=== PATIENT | male | born 1965 | race Two or more races ===

== ENCOUNTER 2018-05-11 11:16 | Emergency (ER) | payer SELFPAY ==
--- NOTE | 2018-05-11 11:47 | EDPHY ---
H & P Stated Complaint: Doesn't feel good since last evening Time Seen by Provider: 05/11/18 11:30 HPI/ROS: Chief Complaint: Weakness, malaise HPI: 52-year-old male with no significant medical history is presenting complaining of worsening general malaise and weakness since yesterday afternoon. It was gradual in onset. Patient states he is very fatigued when he is walking around. He has not had any falls. No fevers or chills. No pain. No headache. No nausea or vomiting. No cough. 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 No new exposures. He says he feels very weak when he stands up. He has been able to ambulate. No ill contacts. No double vision or blurry vision. No recent medication changes. No recent vaccinations. He does have a history of hypertension. He has been compliant with his medications. No vertigo or room spinning. ROS: 10 systems were reviewed and were negative except those elements noted in the HPI. PMH: Hypertension Social History: No smoking, no alcohol, no recreational drug use Family History: non-contributory Physical Exam: Gen: Awake, Alert, No Distress HEENT: Nose: no rhinorrhea Eyes: PERRLA, EOMI Mouth: Moist mucosa Neck: Supple, no JVD Chest: nontender, lungs clear to auscultation Heart: S1, S2 normal, no murmur Abd: Soft, non-tender, no guarding Back: no CVA tenderness, no midline tenderness Ext: no edema, non-tender Skin: no rash Neuro: CN II-XII intact, Sensation grossly intact, Strength 5/5 in bilateral upper and lower extremities, he has normal finger-nose, normal heel-jernigan. Normal bilateral upper lower extremity deep tendon reflexes. Negative Romberg. No facial droop. Normal neurologic exam - Personal History Current Tetanus Diphtheria and Acellular Pertussis (TDAP): Unsure - Medical/Surgical History Other PMH: HTN - Social History Smoking Status: Never smoked Constitutional: Initial Vital Signs Temperature (C) 36.6 C 05/11/18 11:16 Heart Rate 84 05/11/18 11:16 Respiratory Rate 16 05/11/18 11:16 Blood Pressure 183/111 H 05/11/18 11:16 O2 Sat (%) 94 05/11/18 11:16 O2 Delivery Mode Room Air Allergies/Adverse Reactions: No Known Allergies Allergy (Unverified 05/11/18 11:20) Home Medications: Medication Instructions Recorded Bp Med 05/11/18 Medical Decision Making ED Course/Re-evaluation: Patient is improved after a L of fluids. His laboratory tests are negative including a negative influenza. He has a completely normal neurologic exam is excellent strength. Plan will be to discharge with follow-up with his primary care physician as an outpatient. He will return for any concerns. - Data Points Laboratory Results: Laboratory Results 05/11/18 11:50 05/11/18 11:50 05/11/18 05/11/18 05/11/18 12:40 11:56 11:55 WBC RBC Hgb Hct MCV MCH MCHC RDW Plt Count MPV Neut % (Auto) Lymph % (Auto) [place] % (Auto) Eos % (Auto) Baso % (Auto) Nucleat RBC Rel Count Absolute Neuts (auto) Absolute Lymphs (auto) Absolute Monos (auto) Absolute Eos (auto) Absolute Basos (auto) Absolute Nucleated RBC Immature Gran % Immature Gran # Sodium Potassium Chloride Carbon Dioxide Anion Gap BUN Creatinine Estimated GFR Glucose Calcium POC Troponin I 0.00 ng/mL ng/mL (0.00-0.08) Urine Color YELLOW Urine Appearance MODERATELY TURBID Urine pH 7.0 (5.0-7.5) Ur Specific [place] 1.012 (1.002-1.030) Urine Protein NEGATIVE (NEGATIVE) Urine Ketones NEGATIVE (NEGATIVE) Urine Blood NEGATIVE (NEGATIVE) Urine Nitrate NEGATIVE (NEGATIVE) Urine Bilirubin NEGATIVE (NEGATIVE) Urine Urobilinogen NEGATIVE EU EU (0.2-1.0) Ur Leukocyte Esterase NEGATIVE (NEGATIVE) Urine Glucose NEGATIVE (NEGATIVE) Nasal Influenza A PCR NEGATIVE FOR FLU A (NEGATIVE) Nasal Influenza B PCR NEGATIVE FOR FLU B (NEGATIVE) 05/11/18 05/11/18 11:50 11:50 WBC 8.14 10^3/uL 10^3/uL (3.80-9.50) RBC 5.35 10^6/uL 10^6/uL (4.40-6.38) Hgb 15.7 g/dL g/dL (13.7-17.5) Hct 46.3 % % (40.0-51.0) MCV 86.5 fL fL (81.5-99.8) MCH 29.3 pg pg (27.9-34.1) MCHC 33.9 g/dL g/dL (32.4-36.7) RDW 12.6 % % (11.5-15.2) Plt Count 222 10^3/uL 10^3/uL (150-400) MPV 10.1 fL fL (8.7-11.7) Neut % (Auto) 51.5 % % (39.3-74.2) Lymph % (Auto) 37.5 % % (15.0-45.0) [place] % (Auto) 8.4 % % (4.5-13.0) Eos % (Auto) 1.7 % % (0.6-7.6) Baso % (Auto) 0.4 % % (0.3-1.7) Nucleat RBC Rel Count 0.0 % % (0.0-0.2) Absolute Neuts (auto) 4.20 10^3/uL 10^3/uL (1.70-6.50) Absolute Lymphs (auto) 3.05 10^3/uL H 10^3/uL (1.00-3.00) Absolute Monos (auto) 0.68 10^3/uL 10^3/uL (0.30-0.80) Absolute Eos (auto) 0.14 10^3/uL 10^3/uL (0.03-0.40) Absolute Basos (auto) 0.03 10^3/uL 10^3/uL (0.02-0.10) Absolute Nucleated RBC 0.00 10^3/uL 10^3/uL (0-0.01) Immature Gran % 0.5 % % (0.0-1.1) Immature Gran # 0.04 10^3/uL 10^3/uL (0.00-0.10) Sodium 143 mEq/L mEq/L (135-145) Potassium 3.9 mEq/L mEq/L (3.3-5.0) Chloride 104 mEq/L mEq/L (97-110) Carbon Dioxide 32 mEq/l H mEq/l (22-31) Anion Gap 7 mEq/L L mEq/L (8-16) BUN 13 mg/dL mg/dL (7-23) Creatinine 0.7 mg/dL mg/dL (0.7-1.3) Estimated GFR > 60 Glucose 111 mg/dL H mg/dL (70-100) Calcium 9.1 mg/dL mg/dL (8.5-10.4) POC Troponin I Urine Color Urine Appearance Urine pH Ur Specific [place] Urine Protein Urine Ketones Urine Blood Urine Nitrate Urine Bilirubin Urine Urobilinogen Ur Leukocyte Esterase Urine Glucose Nasal Influenza A PCR Nasal Influenza B PCR Point of Care Test Results: Chemistry 05/11/18 11:55 POC Troponin I 0.00 ng/mL ng/mL (0.00-0.08) Departure - Departure Disposition: Home, Routine, Self-Care Clinical Impression: Viral syndrome, Dehydration Condition: Good Instructions: Viral Syndrome (ED), Dehydration (ED) Additional Instructions: Alternate acetaminophen (1000 mg) with ibuprofen (400 mg) every 4 hours as needed for fevers, chills, aches or pain. Drink plenty of clear fluids. Avoid caffeine, alcohol and dairy. Follow up with primary care physician in 2-3 days for further evaluation. Return to the emergency department for increasing lightheadedness or fainting, uncontrolled fevers, nausea, vomiting, worsening weakness, or any other concerns. Referrals: [facility],. [Clinic] - As per Instructions Print Language: Hong Konger
[2018-05-11 12:05] LABS: PLATELET COUNT 222 10^3/uL (150-400)
[2018-05-11 14:30] VITALS: BP 174/112
--- NOTE | 2018-05-11 15:03 | CPEKG ---
Test Reason : OPEN Blood Pressure : / mmHG Vent. Rate : 077 BPM Atrial Rate : 077 BPM P-R Int : 146 ms QRS Dur : 086 ms QT Int : 394 ms P-R-T Axes : 030 -41 007 degrees QTc Int : 446 ms Sinus rhythm Inferior infarct, old Confirmed by Christian Herrera ([id number]) on 05/11/2018 3:03:20 PM Referred By: Confirmed By:Christian Herrera
== END 2018-05-11 14:30 | disposition home or self-care (01) ==
DX: E86.0 Dehydration (principal); B34.9 Viral infection, unspecified; I10 Essential (primary) hypertension
CPT/HCPCS: 84484-PO